=== PATIENT | male | born 1985 | race Two or more races ===

== ENCOUNTER 2024-07-29 19:08 | Emergency (ER) | payer MEDICAID, OTHER ==
[~2024-07-29] VITALS: Ht 172.7 cm; Wt 81.0 kg
[2024-07-29 19:59] VITALS: BP 134/83; PULSE 98; RESP 18; TEMP 98.9; O2SAT 96
--- NOTE | 2024-07-29 20:21 | ED.PDOC ---
[facility]. trauma (HPI) HPI Comments STATES HIS JAW GOT BROKEN X 14 DAYS AGO AND HAD JAW SURGERY X 10 DAYS AGO ND HAD JAW WIRED SHUT. WAS RELEASED FROM [facility] MEDICATION OR ABX. HERE FOR MEDICATIONS. PATIENT DOES NO IMPROVEMENT IN SWELLING AND PAIN SINCE SURGERY. DENIES FEVERFS, CHILLS, N/V., DIFFICULTY EATING, SWALLOWING, OR SPEAKING. Chief Complaint: Jaw Pain Time Seen by MD: 19:18 Reviewed notes: Nurses Notes, Medications, Allergies Allergies: Coded Allergies: NO KNOWN ALLERGIES (Unverified , 07/29/24) Home Meds Active Scripts Ibuprofen (Ibuprofen) 800 Mg Tab, 1 TAB PO TID PRN for 10 Days, #30 TAB Prov:CIROCRISTINE FUSE SPOOLER 07/29/24 Sulfamethoxazole W/Trimethopri (Bactrim Ds Tablet) 1 Tab Tb, 1 TAB PO BID for 10 Days, #20 TAB Prov:CRISTINE TANNER 07/29/24 Information Source: Patient Mode of Arrival: Ambulatory Past Medical History PAST MEDICAL HISTORY: Denies Surgical History: Denies all surgeries Family History Family History: Reviewed,noncontributory to illness Social History Smoker: Non-Smoker Alcohol: Denies ETOH Use Drugs: Denies Drug Use Constitutional: denies: chills, diaphoresis, fatigue, fever, malaise, sweats, weakness, others EENTM: denies: blurred vision, double vision, ear bleeding, ear discharge, ear drainage, ear pain, ear ringing, eye pain, eye redness, hearing loss, mouth pain, mouth swelling, nasal discharge, nose bleeding, nose congestion, nose pain, photophobia, tearing, throat pain, throat swelling, voice changes, others Respiratory: denies: cough, hemoptysis, orthopnea, SOB at rest, shortness of breath, SOB with excertion, stridor, wheezing, others Cardiovascular: denies: chest pain, dizzy spells, diaphoresis, Dyspnea on exertion, edema, irregular heart beat, left arm pain, lightheadedness, palpitations, PND, syncope, others Gastrointestinal: denies: abdomen distended, abdominal pain, blood streaked bowels, constipated, diarrhea, dysphagia, difficulty swallowing, hematemesis, melena, nausea, poor appetite, poor fluid intake, rectal bleeding, rectal pain, vomiting, others Genitourinary: denies: burning, dysuria, flank pain, frequency, hematuria, incontinence, penile discharge, penile sore, pain, testicle pain, testicle swelling, urgency, others Neurological: denies: dizziness, fainting, headache, left sided numbness, left sided weakness, numbness, paresthesia, pre-existing deficit, right sided numbness, right sided weakness, seizure, speech problems, tingling, tremors, weakness, others Musculoskeletal: reports: others (JAW PAIN ); denies: back pain, gout, joint pain, joint swelling, muscle pain, muscle stiffness, neck pain Integumetry: denies: bruises, change in color, change in hair/nails, dryness, laceration, lesions, lumps, rash, wounds, others Allergic/Immunocompromised: denies: Difficulty Healing, Frequent Infections, Hives, Itching, others Hematologic/Lymphatic: denies: anemia, blood clots, easy bleeding, easy bruising, swollen glands, others Endocrine: denies: excessive hunger, excessive sweating, excessive thirst, excessive urination, flushing, intolerance to cold, intolerance to heat, unexplained weight gain, unexplained weight loss, others Psychiatric: denies: anxiety, bipolar disorder, depression, hopeless, panic disorder, schizophrenia, sleepless, suicidal, others Physical Exam General Appearance: No Apparent Distress, Normal HEENT: Head (MILD-MODERSTE LEFT-SIDED JAW SWELLING. ERYTHEMA, OR STREAKING. PATIENT TALKING WITHOUT DIFFICULTY AND SWALLOWING), Pharynx Normal, TMs Normal Neck: Full Range of Motion, Non-Tender, Normal, Normal Inspection Respiratory: Chest Non-Tender, Lungs Clear, No Accessory Muscle Use, No Respiratory Distress, Normal Breath Sounds Cardiovascular: No Edema, No JVD, No Murmur, No Gallop, Normal Peripheral Pulses, Regular Rate/Rhythm Breast Exam: Deferred Gastrointestinal: No Organomegaly, Non Tender, No Pulsatile Mass, Normal Bowel Sounds, Soft Genitalia: Deferred Pelvic: Deferred Rectal: Deferred Extremities: No calf tenderness, Normal capillary refill, Normal inspection, Normal range of motion, Non-tender, No pedal edema Musculoskeletal : Apperance: Normal Neurologic: Alert, safety and health manager II-XII nml as Tested, No Motor Deficits, Normal Affect, Normal Mood, No Sensory Deficits Cerebellar Function: Normal Reflexes: Normal Skin: Dry, Normal Color, Warm Lymphatic: No Adenopathy Was a procedure done? Was a procedure done?: No Differential Diagnosis Multiple Trauma: Fractures X-Ray, Labs, Meds, VS Vital Signs Date Time Temp Pulse Resp B/P (MAP) Pulse Ox O2 Delivery O2 Flow Rate FiO2 07/29/24 19:59 98.9 98 18 134/83 (100) 96 98.9 07/29/24 19:59 98.9 98 18 134/83 (100) 96 07/29/24 19:59 Room Air Current Medications Medications (Trade) Dose Ordered Sig/Edwin Route Start Time Stop Time Status Last Admin Ketorolac Tromethamine (Toradol Injection) 60 mg ONCE ONCE IM 07/29/24 20:45 07/29/24 20:46 DC 07/29/24 20:58 X-Ray, Labs, Meds, VS Comment PATIENT GIVEN TORADOL 60 MG IM REPORTS IMPROVEMENT IN PAIN REQUESTING DISCHARGE AT THIS TIME. BACTRIM TWICE DAILY TIMES 10 DAYS AND IBUPROFEN 800 T.I.D. TIMES 10 DAYS. ADMISSION PROVIDED FOR MAXILLOFACIAL SURGEON FOLLOW UP SHAVON HENAO OR PEL[facility]. WITHIN 1-2 DAYS.TAKE MEDICATIONS PRESCRIBED. RETURN TO ED FOR ANY NEW OR WORSENING SYMPTOMS. Time of 1ST Reevaluation: 21:01 Reevaluation 1ST: Improved Patient Education/Counseling: Diagnosis, Treatment, Prognosis, Need For Follow Up Family Education/Counseling: No Family Present Departure 1 Departure Time of Disposition: 21:01 Impression: Primary Impression: Jaw pain Additional Impression: History of mandibular surgery Disposition: HOME / SELF CARE / HOMELESS Condition: Stable e-Prescriptions Ibuprofen (Ibuprofen) 800 Mg Tab 1 TAB PO TID PRN for 10 Days, #30 TAB Prov: CRISTINE TANNER 07/29/24 Sulfamethoxazole W/Trimethopri (Bactrim Ds Tablet) 1 Tab Tb 1 TAB PO BID for 10 Days, #20 TAB Prov: CRISTINE TANNER 07/29/24 Discharged With: Self Critical Care Note Critical Care Time?: No Stability Stability form required: CRISTINE Galo Jul 29, 2024 20:21
[2024-07-29] MEDS: KETOROLAC TROMETH 60MG/2ML VIAL IM ONE (20:58)
[2024-07-29] MEDS ORDERED: IBUP-1456 PO (21:12)
[2024-07-29] MEDS ORDERED: BACDST PO (21:12)
== END 2024-07-29 21:40 | disposition home or self-care (01) ==
LOC: ER 19:08
DX: R68.84 Jaw pain (principal); Z79.899 Other long term (current) drug therapy
CPT/HCPCS: 96372; 99283; J1885